=== PATIENT | female | born 1970 | race African-American/Black ===

== ENCOUNTER → 2017-10-29 | Outpatient (CLI) | payer BC ==
--- NOTE | 2017-10-29 14:34 | RADIOLOGY REPORT (SQ) ---
EXAM DESCRIPTION: VENOUS UNILATERAL LOWER COMPLETED DATE/TIME: 10/29/2017 2:25 pm REASON FOR STUDY: LLE PAIN M79.662 PAIN IN LEFT LOWER LEG COMPARISON: None. TECHNIQUE: Dynamic and static mora scale and color images acquired of the left leg venous system. Se lected spectral images acquired with additional compression and augmentation maneuvers. The contralat eral common femoral vein and saphenofemoral junction were also imaged. Images stored on PACS. LIMITATIONS: None. FINDINGS: COMMON FEMORAL: Normal phasicity, compression and augmentation. No visualized echogenic ma terial on mora scale. No defects on color images. FEMORAL: Normal compression and augmentation. No visualized echogenic material on mora scale. No defe cts on color images. POPLITEAL: Normal compression, augmentation. No visualized echogenic material on mora scale. No defec ts on color images. CALF VESSELS: Normal compression, augmentation. No visualized echogenic material on mora scale. No de fects on color images. GSV and SSV: Normal compression, augmentation. No visualized echogenic material on mora scale. No def ects on color images. ANY DEEP VENOUS INSUFFICIENCY: Not evaluated. ANY EVIDENCE OF POPLITEAL CYST: No. OTHER: No other significant finding. CONTRALATERAL COMMON FEMORAL VEIN AND SAPHENOFEMORAL JUNCTION: Normal phasicity, compression and augmentation. No visualized echogenic material on mora scale. No de fects on color images. IMPRESSION: NO EVIDENCE OF DVT OR SVT IN THE LEFT LEG. TECHNICAL DOCUMENTATION: JOB ID: [id number] [email or web address]- All Rights Reserved Reading location - IP/workstation name: [email or web address]
== END ==
LOC: SP 13:08
PROVIDERS: ATTEND Orthopaedic Surgery
DX: M79.662 Pain in left lower leg (principal)
CPT/HCPCS: 93971

== ENCOUNTER → 2019-07-01 | Outpatient (CLI) | payer BC | LOC: WI 11:05 | PROVIDERS: ATTEND Nurse Practitioner Primary Care | DX: N60.12 Diffuse cystic mastopathy of left breast (principal); N60.11 Diffuse cystic mastopathy of right breast | CPT/HCPCS: 77066 ==

== ENCOUNTER → 2019-07-07 | Outpatient (CLI) | payer BC ==
--- NOTE | 2019-07-07 08:37 | WOMENS IMAGING REPORT ---
EXAM DESCRIPTION: U/S ABDOMEN LIMITED COMPLETED DATE/TIME: 07/07/2019 8:10 am REASON FOR STUDY: R94.5 ABNORMAL RESULTS OF LIVER FUNCTION STUDIES R94.5 ABNORMAL RESULTS OF LIVER FUNCTION STUDIES COMPARISON: None. TECHNIQUE: Dynamic and static grayscale images acquired of the abdomen and recorded on PACS. Additio nal selected color Doppler and spectral images recorded. LIMITATIONS: Limited visualization of some structures FINDINGS: PANCREAS: Nonvisualized. LIVER: Increased echogenicity with decreased visualization of the portal triads. No focal lesions. Normal size. LIVER VASCULATURE: Normal directional flow of the main portal vein and hepatic veins. GALLBLADDER: Cholelithiasis with wall echo shadow complex. No wall thickening. No pericholecystic f luid. ULTRASOUND-DETECTED TOVAR'S SIGN: Negative. INTRAHEPATIC DUCTS AND COMMON DUCT: CBD and intrahepatic ducts normal caliber. No filling defects. INFERIOR VENA CAVA: Normal flow. AORTA: Limited visualization. RIGHT KIDNEY: Normal size measuring 11.2 cm. Normal echogenicity. No solid or suspicious masses. No hydronephrosis. No calcifications. PERITONEAL AND RIGHT PLEURAL SPACE: No ascites or effusions. OTHER: No other significant findings. IMPRESSION: 1. Cholelithiasis without secondary evidence of acute cholecystitis. 2. Hepatic steatosis. TECHNICAL DOCUMENTATION: JOB ID: [id number] 2010 [employer]- All Rights Reserved Reading location - IP/workstation name: [email or web address]
== END ==
LOC: WI 07:45
PROVIDERS: ATTEND Nurse Practitioner Primary Care
DX: K80.20 Calculus of gallbladder without cholecystitis without obstruction (principal); K76.0 Fatty (change of) liver, not elsewhere classified
CPT/HCPCS: 76705

== ENCOUNTER → 2019-07-29 | Day surgery (SDC) | payer BC ==
[~2019-07-29] MED LIST: LIDOCAINE 1%/EPINEPHRINE INJ 20 ML VIAL ONE
--- NOTE | 2019-07-29 10:01 | Discharge Summary ---
Discharge Summary (SDC) - Discharge Final Diagnosis: Abnormal clustered microcalcifications upper outer aspect of left breast Date of Surgery: 07/29/19 Discharge Date: 07/29/19 Condition: Good Treatment or Instructions: Wear supportive bra; allow Steri-Strips to fall off; take Motrin or Tylenol as needed pain; return to [facility] in 1 to 2 weeks for follow-up check. Referrals: PEPE TORRES, CRISS-C [Primary Care Provider] - Discharge Diet: As Tolerated Discharge Activity: Activity As Tolerated Home Care Assistance: None Needed Report the Following to Your Physician Immediately: Shortness of Breath, Increase in Pain, Fever over 101 Degrees
--- NOTE | 2019-07-29 10:06 | Operative Report ---
Operative Report DATE OF SURGERY: 07/29/19 PREOPERATIVE DIAGNOSIS: Abnormal cluster of microcalcifications upper outer josue drant left breast POSTOPERATIVE DIAGNOSIS: Same OPERATION: 1. Stereotactically directed incision mammotomy core biopsies left breast microcalcifications. 2. Placement of clip marker. 3. Interpretation of specimen radiograph. 4. Interpretation of intraoperative mammography SURGEON: NOEMI ANGUIANO ANESTHESIA: Local TISSUE REMOVED OR ALTERED: Multiple cores left breast COMPLICATIONS: None ESTIMATED BLOOD LOSS: Scant INTRAOPERATIVE FINDINGS: See below PROCEDURE: The patient was taken in the radiology waiting area to the procedure room where she was placed in the prone position, left breast in the mammotomy hole and the left breast placed into compression. The target microcalcifications were in the upper outer quadrant of the left breast. Specifically there were several areas of micro and intermediate sized calcifications so we targeted the cluster of slightly heterogeneous microcalcifications. We now targeted the microcalcifications of interest, with stereotactic views +15 degrees and -15 degrees obtained. Surgical plan and surgical timeout conducted. The left breast surface was prepped with Betadine and anesthetized 1% plain lidocaine, mammotomy made with 11 blade, and the mammotome advanced to the appropriate depth. There was no stroke margin. Pre-and post fire films showed good alignment between the microcalcifications of interest and the tip of the mammotome. We now completed approximately 10 core biopsies in a circumferential fashion. Specimens were acquired, placed on a Tutu dish, and imaged with the specimen radiograph machine. This image demonstrated acquisition of the target microcalcifications. We placed a clip marker after the mammotome was removed from the patient's breast into the biopsy cavity. Post deployment image shows retention of clip in the mammotomy fatty. There was no significant bleeding. Introducer sheath removed, and breast placed into compression. Patient tolerated procedure well. Specimen sent for permanent analysis. [facility] Discharge instructions provided.
== END ==
LOC: RAD 08:41
PROVIDERS: ATTEND Surgery
DX: R92.0 Mammographic microcalcification found on diagnostic imaging of breast (principal); D24.2 Benign neoplasm of left breast; N60.22 Fibroadenosis of left breast; N60.12 Diffuse cystic mastopathy of left breast
CPT/HCPCS: 88305 ×2; 88342; 19081; 77065; J3490

== ENCOUNTER → 2019-09-22 | Outpatient (CLI) | payer BC ==
--- NOTE | 2019-09-22 09:40 | RADIOLOGY REPORT (SQ) ---
EXAM DESCRIPTION: KNEE LEFT 2 VIEWS; KNEE RIGHT 3 VIEWS IMAGES COMPLETED DATE/TIME: 09/22/2019 7:51 am REASON FOR STUDY: SUZI KNEE PAIN M25.561 PAIN IN RIGHT KNEE M25.562 PAIN IN LEFT KNEE COMPARISON: None. NUMBER OF VIEWS: Five views. TECHNIQUE: AP lateral left knee, AP, lateral and sunrise radiographic images acquired of the right k nee. LIMITATIONS: None. FINDINGS: MINERALIZATION: Normal. BONES: No acute fracture or dislocation. No worrisome bone lesions. Anatomic variant bipartite left p atella. JOINT: No effusion. No chondrocalcinosis. OTHER: No other significant finding. IMPRESSION: No acute findings. TECHNICAL DOCUMENTATION: JOB ID: [id number] 2010 [employer]- All Rights Reserved Reading location - IP/workstation name: [email or web address]
--- NOTE | 2019-09-22 09:40 | RADIOLOGY REPORT (SQ) ---
EXAM DESCRIPTION: KNEE LEFT 2 VIEWS; KNEE RIGHT 3 VIEWS IMAGES COMPLETED DATE/TIME: 09/22/2019 7:51 am REASON FOR STUDY: SUZI KNEE PAIN M25.561 PAIN IN RIGHT KNEE M25.562 PAIN IN LEFT KNEE COMPARISON: None. NUMBER OF VIEWS: Five views. TECHNIQUE: AP lateral left knee, AP, lateral and sunrise radiographic images acquired of the right k nee. LIMITATIONS: None. FINDINGS: MINERALIZATION: Normal. BONES: No acute fracture or dislocation. No worrisome bone lesions. Anatomic variant bipartite left p atella. JOINT: No effusion. No chondrocalcinosis. OTHER: No other significant finding. IMPRESSION: No acute findings. TECHNICAL DOCUMENTATION: JOB ID: [id number] 2010 [employer]- All Rights Reserved Reading location - IP/workstation name: [email or web address]
== END ==
LOC: OD 07:11
PROVIDERS: ATTEND Nurse Practitioner Primary Care
DX: M25.561 Pain in right knee (principal); M25.562 Pain in left knee